=== PATIENT | female | born 1965 | race Caucasian/White ===

== ENCOUNTER 2016-06-02 19:39 | Emergency (ER) | payer BC ==
--- NOTE | 2016-06-02 20:33 | Emergency Department Record ---
History of Present Illness - General Chief complaint: Extremity Problem Stated complaint: RT ARM SWOLLEN Time Seen by Provider: 06/02/16 20:25 Source: Patient Mode of Arrival: Ambulatory - History of Present Illness Initial comments: The patient states that she started having swelling from something on her right forearm. She is unaware of the cause and denies know FB, bites or puncture wounds. yesterday her spot was the size of a silver dollar and now her right arm is swollen to her elbow. She is a smoker, denies history of MRSA, and her last TDAP is not UTD. MD Complaint: Extremity pain, Extremity swelling Onset/Timin -: Hour(s) Location: Right, Forearm Severity scale (1-10): 7 Quality: Aching Improves with: Nothing Worsens with: Nothing Associated Symptoms: Denies other symptoms - Related Data Home Medications Medication Instructions Recorded Confirmed Last Taken Gabapentin [Neurontin] 300 mg PO TID 07/03/15 06/02/16 06/02/16 Allergies Allergy/AdvReac Type Severity Reaction Status Date / Time No Known Drug Allergies Allergy Verified 07/03/15 02:34 Travel Screening - Travel/Exposure Within Last 30 Days Have you traveled within the last 30 days?: No - Travel/Exposure Within Last Year Have you traveled outside the [place] in the last year?: No - Additonal Travel Details Have you been exposed to anyone with a communicable illness?: No - Travel Symptoms Symptom Screening: None Review of Systems Reviewed: No additional complaints except as noted below Constitutional: Reports: As per HPI. Denies: Chills, Fever, Malaise, Night sweats, Weakness, Weight change Eyes: Reports: As per HPI. Denies: Eye discharge, Eye pain, Photophobia, Vision change ENT: Reports: As per HPI. Denies: Congestion, Dental pain, Ear pain, Epistaxis , Hearing loss, Throat pain Respiratory: Reports: As per HPI. Denies: Cough, Dyspnea, Hemoptysis, Stridor, Wheezes Cardiovascular: Reports: As per HPI. Denies: Arrhythmia, Chest pain, Dyspnea on exertion, Edema, Murmurs, Orthopnea, Palpitations, Paroxysmal nocturnal dyspnea, Rheumatic Fever, Syncope Endocrine: Reports: As per HPI. Denies: Fatigue, Heat or cold intolerance, Polydipsia, Polyuria Gastrointestinal: Reports: As per HPI. Denies: Abdominal pain, Constipation, Diarrhea, Hematemesis, Hematochezia, Melena, Nausea, Vomiting Genitourinary: Reports: As per HPI. Denies: Abnormal menses, Discharge, Dyspareunia, Dysuria, Frequency, Hematuria, Incontinence, Retention, Urgency Musculoskeletal: Reports: As per HPI. Denies: Arthralgia, Back pain, Gout, Joint swelling, Myalgia, Neck pain Skin: Reports: As per HPI. Denies: Bruising, Change in color, Change in hair/ nails, Lesions, Pruritus, Rash Neurological: Reports: As per HPI. Denies: Abnormal gait, Confusion, Headache, Numbness, Paresthesias, Seizure, Tingling, Tremors, Vertigo, Weakness Psychiatric: Reports: As per HPI. Denies: Anxiety, Auditory hallucinations, Depression, Homicidal thoughts, Suicidal thoughts, Visual hallucinations Hematological/Lymphatic: Reports: As per HPI. Denies: Anemia, Blood Clots, Easy bleeding, Easy bruising, Swollen glands Past Medical History - SOCIAL HISTORY Smoking Status: Current every day smoker Alcohol Use: Rare Drug Use: None - RESPIRATORY Hx Respiratory Disorders: No - CARDIOVASCULAR Hx Cardio Disorders: No - NEURO Hx Neuro Disorders: No - GI Hx GI Disorders: No - Hx Genitourinary Disorders: Yes Hx UTI: Yes (hx) - ENDOCRINE Hx Endocrine Disorders: No - MUSCULOSKELETAL Hx Musculoskeletal Disorders: No - PSYCH Hx Psych Problems: No - HEMATOLOGY/ONCOLOGY Hx Hematology/Oncology Disorders: No Family Medical History Any Significant Family History?: No Hx Cancer: Grandparents Hx Heart Disease: Father Physical Exam - General General Appearance: Alert, Oriented x3, Cooperative, Mild distress (arm pain right forearm) - Head Head exam: Normal inspection - Eye Eye exam: Normal appearance, PERRL Pupils: Normal accommodation - ENT ENT exam: Normal exam, Mucous membranes moist, Normal external ear exam, Normal orophraynx, TM's normal bilaterally Ear exam: Normal external inspection. negative: External canal tenderness Nasal Exam: Normal inspection. negative: Discharge, Sinus tenderness Mouth exam: Normal external inspection, Tongue normal Teeth exam: Normal inspection. negative: Dental caries Throat exam: Normal inspection. negative: Tonsillar erythema, Tonsillar exudate - Neck Neck exam: Normal inspection, Full ROM. negative: Tenderness - Respiratory Respiratory exam: Normal lung sounds bilaterally. negative: Respiratory distress - Cardiovascular Cardiovascular Exam: Regular rate, Normal rhythm, Normal heart sounds - GI/Abdominal GI/Abdominal exam: Soft, Normal bowel sounds. negative: Tenderness - Rectal Rectal exam: Deferred - exam: Deferred - Extremities Extremities exam: Normal inspection, Full ROM, Normal capillary refill, Tenderness (Right forearm with cellulitis on extensor side, not circumferential , with central bite site with induratio and NO fluctuance. CMS intact distally , no axillary LNopathy, no upper arm swelling. Hand WNL with FROM, no edema.) - Back Back exam: Reports: Normal inspection, Full ROM. Denies: Muscle spasm, Rash noted, Tenderness - Neurological Neurological exam: Alert, Normal gait, Oriented X3, Reflexes normal - Psychiatric Psychiatric exam: Normal affect, Normal mood - Skin Skin exam: Dry, Intact, Normal color, Warm Course Vital Signs 06/02/16 19:53 Temperature 98.6 F Pulse Rate 102 H Respiratory 20 Rate Blood Pressure 115/85 Pulse Ox 94 L Medical Decision Making - Management Options MDM Management: Additional Work-up Planned (e.g. ADM/Transfer/OP Study) (Reheck here 12 hours for repeat antibiotics and recheck of infectioin site.) - Data Complexity MDM Data: Labs Ordered and/or Reviewed - Lab Data Result diagrams: 06/02/16 20:15 06/02/16 20:15 Disposition Disposition: Discharge Clinical Impression: Cellulitis of right forearm Disposition: Home, Self-Care Condition: (1) Good Instructions: Abscess (ED), Cellulitis (ED) Additional Instructions: Recheck here 12 hours for repeat antibiotics and recheck/re-evaluation of infection site without fail. No use of right arm. May use warm soaks if helpful. [place] one every 6 hours if needed for pain.
[2016-06-02] MEDS ORDERED: Diph,Pert(Acell),Tet Vac 0.5 ML SYR IM ONE (20:34)
[2016-06-02 20:41] LABS: HEMOGLOBIN 12.9 gm/dl (11.6-16.0); MEAN CELL VOLUME 93.5 fl (81-97); MEAN CORPUSCULAR HEMOGLOBIN 30.9 pg (27-33); MEAN CORPUSCULAR HGB CONC 33.1 g/dl (32-36); MEAN PLATELET VOLUME 10.2 fl (7.4-10.4); PLATELET COUNT 344 K/uL (130-400); RED BLOOD COUNT 4.17 M/uL (3.80-5.40); WHITE BLOOD COUNT W/O DIFF 17.3 K/uL (4.2-12.2)
[2016-06-02 21:09] LABS: ANION GAP 14.4 (7-16); BLOOD UREA NITROGEN 24 mg/dL (7-17); CARBON DIOXIDE 29.6 mmol/L (22-30); CREATININE 0.9 mg/dL (0.52-1.04); EST GLOMERULAR FILTRATION RATE > 60 ml/min; GLUCOSE,RANDOM 84 mg/dL (70-110)
[2016-06-02] MEDS ORDERED: 0.9 % SODIUM CHLORIDE 1,000 ML BAG IV ONE (21:19)
[2016-06-02] MEDS ORDERED: VANCOMYCIN HCL 1,000 MG in 0.9 % SODIUM CHLORIDE 250ML 250 ML IVPB ONE (21:19)
[2016-06-02] MEDS ORDERED: HYDROCODONE/APAP 5/325MG TABLET PO ONE ×2 (21:23→21:54)
[2016-06-02] MEDS ORDERED: DIPHENHYDRAMINE HCL IV 50 MG/ML VIAL IM ONE (22:45)
== END 2016-06-02 23:10 | disposition home or self-care (01) ==
LOC: ER 19:39
DX: L03.113 Cellulitis of right upper limb (principal)
CPT/HCPCS: 99284 ×2; 96372; 96365; 96375; 80048; 85027; J3370; 90715; J1200; J7050

== ENCOUNTER 2016-06-03 12:48 | Emergency (ER) | payer BC | END 2016-06-03 13:31 | disposition left against medical advice (07) | LOC: ER 12:48 | DX: Z53.20 Procedure and treatment not carried out because of patient's decision for unspecified reasons (principal) ==

== ENCOUNTER 2016-06-03 16:18 | Inpatient (IN) | payer BC ==
[2016-06-03] MEDS ORDERED: VANCOMYCIN HCL 1,000 MG in 0.9 % SODIUM CHLORIDE 250ML 250 ML IVPB ONE (16:27)
[2016-06-03] MEDS ORDERED: CLINDAMYCIN 150 MG CAP PO ONE (16:28)
--- NOTE | 2016-06-03 16:33 | Emergency Department Record ---
History of Present Illness - General Chief Complaint: Recheck - Other Stated Complaint: RECHECK, ANTIBIOTICS Time Seen by Provider: 06/03/16 16:27 Source: Patient Mode of arrival: Ambulatory Limitations: No limitations - History of Present Illness Initial Comments: 50 yo female presents for a repeat dose of IV antibiotics for a forearm cellulitis and possible abscess. Her initial dose was finished at 19:18 last night. The area remains red and has some local swelling. The area of redness has expanded well beyond the initial area. No fevers. . The area started with a small scabbed that she picked. The area in the middle of the redness is firm and tender. No drainage at this point. the patient reports she had been on an oral antibiotic for 2 days at the very start of the redness but she does not have that with her or recall what antibiotic it was. Complaint: Wound re-check -: Days(s) (2) Initial Visit For: Abscess, Cellulitis Returns Today for: Needs IV antibiotics Symptoms Since Prior Visit: Worsening redness Associated Symptoms: None - Related Data Home Medications Medication Instructions Recorded Confirmed Last Taken Gabapentin [Neurontin] 300 mg PO TID 07/03/15 06/03/16 06/02/16 Allergies Allergy/AdvReac Type Severity Reaction Status Date / Time No Known Drug Allergies Allergy Verified 07/03/15 02:34 Review of Systems Constitutional: Denies: Chills, Fever, Malaise, Weakness Eyes: Denies: Eye discharge ENT: Denies: Congestion, Throat pain Respiratory: Denies: Cough Cardiovascular: Denies: Chest pain, Palpitations, Syncope Endocrine: Denies: Fatigue Gastrointestinal: Denies: Abdominal pain, Diarrhea, Nausea, Vomiting Genitourinary: Denies: Dysuria Musculoskeletal: Reports: Myalgia. Denies: Arthralgia, Back pain, Joint swelling Skin: Reports: Change in color, Rash Neurological: Denies: Headache Psychiatric: Denies: Anxiety Hematological/Lymphatic: Denies: Easy bleeding, Easy bruising, Swollen glands Past Medical History - SOCIAL HISTORY Smoking Status: Current every day smoker Drug Use: None - RESPIRATORY Hx Respiratory Disorders: No - CARDIOVASCULAR Hx Cardio Disorders: No - NEURO Hx Neuro Disorders: No - GI Hx GI Disorders: No - Hx Genitourinary Disorders: Yes Hx UTI: Yes (hx) - ENDOCRINE Hx Endocrine Disorders: No - MUSCULOSKELETAL Hx Musculoskeletal Disorders: No - PSYCH Hx Psych Problems: No - HEMATOLOGY/ONCOLOGY Hx Hematology/Oncology Disorders: No Family Medical History Hx Cancer: Grandparents Hx Heart Disease: Father Physical Exam - General General Appearance: Alert, Oriented x3, Cooperative, No acute distress Limitations: No limitations - Head Head exam: Normal inspection - Eye Eye exam: Normal appearance, PERRL - ENT ENT exam: Normal exam Ear exam: Normal external inspection Nasal Exam: Normal inspection Mouth exam: Normal external inspection Teeth exam: Normal inspection Throat exam: Normal inspection - Neck Neck exam: Normal inspection, Full ROM. negative: Tenderness - Respiratory Respiratory exam: Normal lung sounds bilaterally. negative: Respiratory distress - Cardiovascular Cardiovascular Exam: Regular rate, Normal rhythm, Normal heart sounds Peripheral Pulses: 2+: Radial (R) - GI/Abdominal GI/Abdominal exam: Soft - Rectal Rectal exam: Deferred - exam: Deferred - Extremities Extremities exam: Normal capillary refill, Tenderness, Other (right forearm swelling, erythema, small central scab). negative: Normal inspection, Pedal edema - Neurological Neurological exam: Alert, Normal gait, Oriented X3, Reflexes normal - Psychiatric Psychiatric exam: Normal affect, Normal mood - Skin Skin exam: Erythema Course - Reevaluation(s) Reevaluation #1: The area of erythema has extended beyond the original line. I recommend admission for IV antibiotics given the worsening and her compliance issue. 06/03/16 16:34 Reevaluation #2: PROCEDURE: ABSCESS I AND D Mixed density fluid collection found with bedside US Betadine prep Lidocaine 1.% with epi 3ml 11 blade scalpe made a 1.5cm incision Pus immediately found with culture obtained The area was probed for loculations The abscess cavity was irrigated until clear A 1.4 inch packing was placed The patient tolerated well I recommend admission for IV antibiotics and reassess for improvement after the abscess drainage. I left a message with Dr Alvarez regarding admission 06/03/16 17:35 06/04/16 07:37 - Consultations Consultation #1: I SW Dr Alvarez regarding the increased swelling, redness, and abscess with redness near the joint that is significantly worse that the initial visit and is a failed outpatient treatment of her initial oral antibiotics and then IV dose in the ED. Medical Decision Making - Lab Data Result diagrams: 06/03/16 16:44 Disposition Disposition: Admit Clinical Impression: Cellulitis of forearm, right, Abscess of forearm, right Disposition: Still a Patient at [facility] Decision to Admit: Admit from ER Decision to Admit Date: 06/03/16 Decision to Admit Time: 18:09 Condition: (1) Good Time of Disposition: 18:09
[2016-06-03 16:50] LABS: BASO % 0.2 % (0-6); EOS % 0.7 % (0-6); GRAN % 72.2 % (47-80); HEMATOCRIT 37.5 % (35.0-47.0); HEMOGLOBIN 12.3 gm/dl (11.6-16.0); MEAN CELL VOLUME 94.2 fl (81-97); MEAN CORPUSCULAR HEMOGLOBIN 30.9 pg (27-33); MEAN CORPUSCULAR HGB CONC 32.8 g/dl (32-36); MEAN PLATELET VOLUME 10.2 fl (7.4-10.4); MONO % 5.9 % (0-9); PLATELET COUNT 318 K/uL (130-400); RED BLOOD COUNT 3.98 M/uL (3.80-5.40); RED CELL DISTRIBUTION WIDTH 15.8 % (11.5-14.5); WHITE BLOOD COUNT W/O DIFF 17.8 K/uL (4.2-12.2)
[2016-06-03] MEDS ORDERED: HYDROCODONE/APAP 5/325MG TABLET PO PRN (18:11)
[2016-06-03] MEDS ORDERED: 0.9 % SODIUM CHLORIDE 1000ML 1,000 ML IV PRN (18:43)
[2016-06-03] MEDS ORDERED: ACETAMINOPHEN 500 MG TABLET PO PRN (18:43)
[2016-06-03] MEDS ORDERED: FLU VAC QS 2016-17 (INPT, 3YR+) 60MCG/0.5ML IM ONE (18:57)
[2016-06-03] MEDS: CEPHALEXIN 500 MG CAPSULE PO SCH (20:46)
[2016-06-03] MEDS: CLINDAMYCIN 600MG/50ML PREMIX 600 MG in DEXTROSE 1 BAG IV SCH (20:47)
[2016-06-03] MEDS: HYDROCODONE/APAP 5/325MG TABLET PO PRN (20:53)
[2016-06-03] MEDS: GABAPENTIN 300 MG CAPSULE PO SCH (21:53)
[2016-06-04] MEDS: HYDROCODONE/APAP 5/325MG TABLET PO PRN ×4 (02:09→23:32)
[2016-06-04] MEDS: CEPHALEXIN 500 MG CAPSULE PO SCH ×5 (02:10→23:34)
[2016-06-04] MEDS: CLINDAMYCIN 600MG/50ML PREMIX 600 MG in DEXTROSE 1 BAG IV SCH ×3 (05:22→21:36)
[2016-06-04] MEDS: 0.9 % SODIUM CHLORIDE 10ML SYR IVP SCH ×2 (08:00→21:37)
[2016-06-04] MEDS: ENOXAPARIN 40 MG/0.4 ML SYR SC SCH (09:54)
[2016-06-04] MEDS: GABAPENTIN 300 MG CAPSULE PO SCH ×3 (09:54→21:33)
[2016-06-04] MEDS: NICOTINE 21 MG/24 HOUR PATCH TD SCH (11:30)
[2016-06-05] MEDS: CLINDAMYCIN 600MG/50ML PREMIX 600 MG in DEXTROSE 1 BAG IV SCH ×2 (05:42→14:11)
[2016-06-05] MEDS: CEPHALEXIN 500 MG CAPSULE PO SCH ×2 (05:43→12:00)
[2016-06-05] MEDS: HYDROCODONE/APAP 5/325MG TABLET PO PRN ×2 (05:45→10:41)
--- NOTE | 2016-06-05 07:22 | History & Physical ---
History of Present Illness - Date of Service Date of Service for History & Physical: 06/05/16 - History of Present Illness Admitting Diagnosis: failed outpatient cellulitis of the right forearm with abscess, cellulitis over a joint History of Present Illness: Madalyn Neville is a 50 y/o female with no significant medical history and no known history of MRSA admitted for failed out patient treatment of right forearm cellulitis. Patient reports area to right arm began as a scab she picked, had been on oral antibiotics for 2 days with worsening or redness. Denies fever, chills PMH: UTI PSH: bilateral knee, tubal ligation PCP: Dr Alvarez Travel Screening - Travel/Exposure Within Last 30 Days Have you traveled within the last 30 days?: No - Travel/Exposure Within Last Year Have you traveled outside the [place] in the last year?: No - Additonal Travel Details Have you been exposed to anyone with a communicable illness?: No - Travel Symptoms Symptom Screening: None Review of Systems Constitutional: Denies: Chills, Fever, Malaise, Weakness Eyes: Denies: Eye discharge ENT: Denies: Congestion, Throat pain Respiratory: Denies: Cough Cardiovascular: Denies: Chest pain, Palpitations, Syncope Endocrine: Denies: Fatigue Gastrointestinal: Denies: Abdominal pain, Diarrhea, Nausea, Vomiting Genitourinary: Denies: Dysuria Musculoskeletal: Reports: Myalgia. Denies: Arthralgia, Back pain, Joint swelling Skin: Reports: Change in color, Rash Neurological: Denies: Headache Psychiatric: Denies: Anxiety Hematological/Lymphatic: Denies: Easy bleeding, Easy bruising, Swollen glands Past Medical History - SOCIAL HISTORY Smoking Status: Current every day smoker Drug Use: None - RESPIRATORY Hx Respiratory Disorders: No - CARDIOVASCULAR Hx Cardio Disorders: No - NEURO Hx Neuro Disorders: No - GI Hx GI Disorders: No - Hx Genitourinary Disorders: Yes Hx UTI: Yes (hx) - ENDOCRINE Hx Endocrine Disorders: No - MUSCULOSKELETAL Hx Musculoskeletal Disorders: No - PSYCH Hx Psych Problems: No - HEMATOLOGY/ONCOLOGY Hx Hematology/Oncology Disorders: No Family Medical History Hx Cancer: Grandparents Hx Heart Disease: Father H&P Meds/Allergies - Allergies Allergies: Allergies Allergy/AdvReac Type Severity Reaction Status Date / Time No Known Drug Allergies Allergy Verified 07/03/15 02:34 - Home Medications Home Medications Medication Instructions Recorded Confirmed Last Taken Gabapentin [Neurontin] 300 mg PO TID 07/03/15 06/03/16 06/02/16 - Active Medications Active Medications: Current Medications Acetaminophen (Tylenol 500mg Tab) 1,000 mg PO Q6H PRN PRN Reason: PAIN/TEMP Acetaminophen/Hydrocodone Bitart ([place] 5mg/325mg) 1 each PO Q4H PRN PRN Reason: Pain - General Last Admin: 06/05/16 05:45 Dose: 1 each Cephalexin HCl (Keflex) 500 mg PO Q6H [facility] Stop: 06/14/16 12:01 Last Admin: 06/05/16 05:43 Dose: 500 mg Enoxaparin Sodium (Lovenox) 40 mg SC DAILY [facility] Last Admin: 06/04/16 09:54 Dose: 40 mg Gabapentin (Neurontin) 300 mg PO TID [facility] Last Admin: 06/04/16 21:33 Dose: 300 mg Clindamycin Phosphate 600 mg/ (Glucose) 50 mls @ 50 mls/30 min IV Q8H [facility] Last Admin: 06/05/16 05:42 Dose: 50 mls/30 min Nicotine (Nicotine 21mg) 1 patch TD DAILY [facility] Last Admin: 06/04/16 11:30 Dose: 1 patch Sodium Chloride () 10 ml IVP Q12H [facility] Last Admin: 06/04/16 21:37 Dose: 10 ml Physical Exam - Vital Signs Vital Signs: Vital Signs - Last 24 Hrs Temp Pulse Resp BP Pulse Ox 06/05/16 03:08 98.5 F 84 18 120/73 93 L 06/04/16 18:00 97.6 F 85 18 122/69 97 06/04/16 08:17 75 18 92/62 98 - General General Appearance: Alert, Oriented x3, Cooperative, No acute distress Limitations: No limitations - Head Head exam: Normal inspection - Eye Eye exam: Normal appearance, PERRL - ENT ENT exam: Normal exam Ear exam: Normal external inspection Nasal Exam: Normal inspection Mouth exam: Normal external inspection Teeth exam: Normal inspection Throat exam: Normal inspection - Neck Neck exam: Normal inspection, Full ROM. negative: Tenderness - Respiratory Respiratory exam: Normal lung sounds bilaterally. negative: Respiratory distress - Cardiovascular Cardiovascular Exam: Regular rate, Normal rhythm, Normal heart sounds Peripheral Pulses: 2+: Radial (R) - GI/Abdominal GI/Abdominal exam: Soft - Rectal Rectal exam: Deferred - exam: Deferred - Extremities Extremities exam: Normal capillary refill, Tenderness, Other (right forearm swelling, erythema, small central scab). negative: Normal inspection, Pedal edema - Neurological Neurological exam: Alert, Normal gait, Oriented X3, Reflexes normal - Psychiatric Psychiatric exam: Normal affect, Normal mood - Skin Skin exam: Erythema Results - Labs Result Diagrams: 06/03/16 16:44 VTE H&P Assessment - Risk for VTE Risk for VTE: Yes Risk Level: Moderate Risk Assessment Date: 06/05/16 Risk Assessment Time: 07:28 VTE Orders Placed or Will Be Placed: Yes Plan - Inpatient Certification Inpatient Certification: Admit to inpatient care: Based on my medical assessment, after consideration of patient's risk factors (age, co-morbidities and patient presenting symptoms and acuity), I expect that this patient will remain in the hospital greater than or equal to two midnights and that the services needed warrant inpatient care because: Patient Risk Factors: [failed outpatient treatment of cellulitis] Estimated length of stay: [48-72 hours] The patient may reasonably be expected to be discharged or transferred to a hospital within 96 hours after admission to [facility]. Services needed: [IV antibiotics] Post hospital care (if known): [] I certify that my determination is in accordance with my understanding of Medicare requirements for reasonable and necessary inpatient services. 06/05/16 07:28 - Detailed Diagnosis and Plan (1) Cellulitis of forearm, right Current Visit: Yes Status: Acute Base Code: L03.113 - CELLULITIS OF RIGHT UPPER LIMB Comment: 06/05- admitted for failed outpatient treatment of cellulitis - no known history of MRSA - no Hx DM - WBC in ER 17.8, will recheck today - afebrile - Continue Clindamycin 600mg IVPB Q 8 hours and Keflex 500mg PO Q 6 hours - Per ER report had I&D of abscess within area of cellulitis- await culture results - pain controlled with [place] 5/325mg Q 4 hrs PRN (2) DVT prophylaxis Current Visit: Yes Status: Acute Base Code: [id number] - Comment: 06/05- Lovenox 40mg SQ QD during this hospitalization (3) Full code status Current Visit: Yes Status: Acute Base Code: Z78.9 - OTHER SPECIFIED HEALTH STATUS Comment: 06/05- will remain full code during this hospitalization
[2016-06-05 08:26] LABS: BASO % 0.2 % (0-6); EOS % 2.6 % (0-6); GRAN % 59.1 % (47-80); HEMOGLOBIN 11.7 gm/dl (11.6-16.0); LYMPH % 31.2 % (16-45); MEAN CORPUSCULAR HGB CONC 32.5 g/dl (32-36); MEAN PLATELET VOLUME 10.4 fl (7.4-10.4); MONO % 6.9 % (0-9); PLATELET COUNT 296 K/uL (130-400); RED BLOOD COUNT 3.79 M/uL (3.80-5.40); RED CELL DISTRIBUTION WIDTH 15.9 % (11.5-14.5)
--- NOTE | 2016-06-05 08:26 | History and Physical Report ---
After seeing Dr. Dallas she was requested to come back in twelve hours for repeat antibiotics and re-evaluation. She was given Vancomycin IV piggyback 1 gram and labs were drawn. She was seen by Dr. Loza the next day. There is concern about the Vancomycin because it caused a rash, probably more an adverse reaction rather than a true allergy, but the option was not to go with Vancomycin again. On the recheck by Dr. Loza he felt that it was getting worse and he opened it up and he was concerned about the cellulitis going into the joint in the elbow. He started IV Clindamycin , he did an I&D, he got purulent material out, he packed it with packing quarter inch. 1.4 inches of packing was placed into the abscess cavity after irrigating it. Keflex orally and Clindamycin IV. Today at my evaluation the right forearm is still swollen, it looks like the cellulitis is retracting slightly and not as red and showing some improvement. The packing is nicely in place, we will change the packing tomorrow. PAST MEDICAL HISTORY: Tobacco use and restless leg syndrome which she uses Gabapentin. She also has had frequent urinary tract infections in the past. She smokes one pack of cigarettes per day. PAST SURGICAL HISTORY: Bilateral knee surgery and tubal ligation. MEDICATIONS ON ADMISSION: Gabapentin 300 mg t.i.d. ALLERGIES: No known drug allergies. FAMILY/PSYCHOSOCIAL HISTORY: Unremarkable. REVIEW OF SYSTEMS: HEENT: No upper respiratory infectious symptoms, cough, cold or congestion. Cardiovascular: No chest pain, palpitations, or arrhythmias. Respiratory: She smokes one pack a day and has so for about 30 years, she is trying to stop. Gastrointestinal: No nausea, vomiting, diarrhea, black stools, or bloody stools. Genitourinary: No dysuria, hematuria , frequency or burning on urination. Musculoskeletal: No joint or bone abnormalities. Neurologic: No CVA, paralysis, or paresthesias. Gynecologic: Unremarkable. Endocrine: No diabetes or thyroid disease. Integument: See chief complaint. There is an abscess of cellulitis of the right forearm. PHYSICAL EXAMINATION: Height is 5'2", weight is 107 pounds. Vital signs: Temperature is 98.8, pulse is 75, blood pressure is 92/62, respirations are 18, pulse ox is 98% on room air. HEENT: Pupils are equal, round and reactive to light and accommodation. Extraocular muscles are intact. Throat is clear. Nose is clear. Tympanic membranes are cordero. NECK: Supple. No jugular venous distention. No hepatojugular reflex. No carotid bruits. Thyroid is smooth. CARDIOVASCULAR: Regular rate and rhythm without murmurs, clicks, rubs or gallops. RESPIRATORY: Decreased breath sounds bilaterally. She has a hoarse voice which probably is from cigarettes. ABDOMEN: Soft, nontender. No hepatosplenomegaly. No masses. No tenderness. Bowel sounds are active. No bruits. EXTREMITIES: No pitting edema. No cyanosis. No clubbing. Full range of motion. Peripheral pulses are good. BREASTS: Deferred. GYNECOLOGICAL: Deferred. RECTAL: Deferred. NEUROLOGICAL: Cranial nerves II through XII intact. No gross defects. Sensation normal. Strength normal. Deep tendon reflexes are equal bilaterally. Babinski's negative. MENTAL STATUS: Alert and oriented times three. INTEGUMENT: In the right forearm there is an abscess area in which packing is in place, it looks nice and dry. There are two purple lines around the one circled 06/02/16, the other was 06/03/16. The redness is less angry and retracting according to the patient. There is still fairly redness going over the surface of the elbow, the abscess is about 4 inches distal to the elbow. IMPRESSION: ABSCESS CELLULITIS OF THE RIGHT FOREARM, FAILED OUTPATIENT THERAPY. PLAN: IV Clindamycin, oral Keflex, we will consider adding Bactrim if it doesn' t continue to improve. Aleksandr Sanz D.O. Date & Time JOB NUMBER: [id number] [facility]
[2016-06-05 08:27] LABS: MEAN CORPUSCULAR HEMOGLOBIN 30.8 pg (27-33)
[2016-06-05] MEDS: 0.9 % SODIUM CHLORIDE 10ML SYR IVP SCH (10:42)
[2016-06-05] MEDS: ENOXAPARIN 40 MG/0.4 ML SYR SC SCH (10:42)
[2016-06-05] MEDS: GABAPENTIN 300 MG CAPSULE PO SCH (10:42)
[2016-06-05] MEDS: NICOTINE 21 MG/24 HOUR PATCH TD SCH (10:43)
--- NOTE | 2016-06-05 12:38 | Discharge Note ---
Discharge Note - Date Date of Discharge Note: 06/05/16 Disposition: Home, Self-Care Condition: (1) Good Additional Instructions: follow up with Dr Yeh in 2 to 4 days wash arm daily and warm compresses four times a day and use gauze dressings take bactrim DS twice a day keflex 500 mg four times a day Prescriptions: Sulfamethoxazole/Trimethoprim [Bactrim Ds Tablet] 1 each PO BID #20 tablet Cephalexin [Keflex] 500 mg PO Q6H #40 capsule Nicotine [Nicotine 21Mg] 1 patch TD DAILY #30 patch Hydrocodone/Acetaminophen [[place] 5mg/325mg] 1 tab PO Q6H PRN #14 tab PRN Reason: Pain - General Forms: Patient Portal Access Activity at Discharge: Increase Activity as Tolerated Diet at Discharge: Regular Diet
== END 2016-06-05 15:36 | disposition home or self-care (01) | DRG 603 ==
LOC: ER 16:18 → MEDSURG 18:41
PROVIDERS: ADMIT Family Medicine; ATTEND Emergency Medicine
PROC: 0H9DXZZ Drainage of Right Lower Arm Skin, External Approach (ICD-10-PCS; principal; 2016-06-03)
DX: L03.113 Cellulitis of right upper limb (principal); F17.200 Nicotine dependence, unspecified, uncomplicated
CPT/HCPCS: 10060; 85025; 85027; 90686; 96365; 99285; J1650; J7050

== ENCOUNTER 2016-11-13 00:12 | Emergency (ER) | payer BC ==
--- NOTE | 2016-11-13 00:35 | Emergency Department Record ---
History of Present Illness - General Chief complaint: Extremity Problem Stated complaint: FOOT PAIN Time Seen by Provider: 11/13/16 00:29 Source: Patient Mode of Arrival: Ambulatory - History of Present Illness Initial comments: Injured her left foot in a swimming pool over 3 days ago. Three days ago it began to swell on the top and is tender. She is on her feet all days cleaning houses. Onset/Timin -: Week(s) Location: Left, Foot Radiation: None Severity scale (1-10): 6 Quality: Aching Consistency: Intermittent Improves with: Cold therapy, Medication Worsens with: Exertion, Palpation Associated Symptoms: Denies other symptoms - Related Data Home Medications Medication Instructions Recorded Confirmed Last Taken Gabapentin [Neurontin] 800 mg PO TID 07/03/15 11/13/16 11/13/16 Allergies Allergy/AdvReac Type Severity Reaction Status Date / Time No Known Drug Allergies Allergy Verified 07/03/15 02:34 Travel Screening - Travel/Exposure Within Last 30 Days Have you traveled within the last 30 days?: No Review of Systems Reviewed: No additional complaints except as noted below Constitutional: Reports: As per HPI. Denies: Chills, Fever, Malaise, Night sweats, Weakness, Weight change Eyes: Reports: As per HPI. Denies: Eye discharge, Eye pain, Photophobia, Vision change ENT: Reports: As per HPI. Denies: Congestion, Dental pain, Ear pain, Epistaxis , Hearing loss, Throat pain Respiratory: Reports: As per HPI. Denies: Cough, Dyspnea, Hemoptysis, Stridor, Wheezes Cardiovascular: Reports: As per HPI. Denies: Arrhythmia, Chest pain, Dyspnea on exertion, Edema, Murmurs, Orthopnea, Palpitations, Paroxysmal nocturnal dyspnea, Rheumatic Fever, Syncope Endocrine: Reports: As per HPI. Denies: Fatigue, Heat or cold intolerance, Polydipsia, Polyuria Gastrointestinal: Reports: As per HPI. Denies: Abdominal pain, Constipation, Diarrhea, Hematemesis, Hematochezia, Melena, Nausea, Vomiting Genitourinary: Reports: As per HPI. Denies: Abnormal menses, Discharge, Dyspareunia, Dysuria, Frequency, Hematuria, Incontinence, Retention, Urgency Musculoskeletal: Reports: As per HPI. Denies: Arthralgia, Back pain, Gout, Joint swelling, Myalgia, Neck pain Skin: Reports: As per HPI. Denies: Bruising, Change in color, Change in hair/ nails, Lesions, Pruritus, Rash Neurological: Reports: As per HPI. Denies: Abnormal gait, Confusion, Headache, Numbness, Paresthesias, Seizure, Tingling, Tremors, Vertigo, Weakness Psychiatric: Reports: As per HPI. Denies: Anxiety, Auditory hallucinations, Depression, Homicidal thoughts, Suicidal thoughts, Visual hallucinations Hematological/Lymphatic: Reports: As per HPI. Denies: Anemia, Blood Clots, Easy bleeding, Easy bruising, Swollen glands Past Medical History - SOCIAL HISTORY Smoking Status: Current every day smoker Alcohol Use: None Drug Use: None - RESPIRATORY Hx Respiratory Disorders: No - CARDIOVASCULAR Hx Cardio Disorders: No - NEURO Hx Neuro Disorders: Yes Hx Neuropathy: Yes - GI Hx GI Disorders: No - Hx Genitourinary Disorders: Yes Hx UTI: Yes (hx) - ENDOCRINE Hx Endocrine Disorders: No - MUSCULOSKELETAL Hx Musculoskeletal Disorders: No - PSYCH Hx Psych Problems: No - HEMATOLOGY/ONCOLOGY Hx Hematology/Oncology Disorders: No Family Medical History Any Significant Family History?: Yes Hx Cancer: Grandparents Hx Heart Disease: Father Physical Exam - General General Appearance: Alert, Oriented x3, Cooperative, No acute distress - Head Head exam: Normal inspection - Eye Eye exam: Normal appearance, PERRL Pupils: Normal accommodation - ENT ENT exam: Normal exam, Normal external ear exam, Normal orophraynx Ear exam: Normal external inspection. negative: External canal tenderness Nasal Exam: Normal inspection. negative: Discharge, Sinus tenderness Mouth exam: Normal external inspection, Tongue normal Teeth exam: Normal inspection. negative: Dental caries Throat exam: Normal inspection. negative: Tonsillar erythema, Tonsillar exudate - Neck Neck exam: Normal inspection, Full ROM. negative: Tenderness - Respiratory Respiratory exam: Normal lung sounds bilaterally. negative: Respiratory distress - Cardiovascular Cardiovascular Exam: Regular rate, Normal rhythm - GI/Abdominal GI/Abdominal exam: Soft. negative: Tenderness - Rectal Rectal exam: Deferred - exam: Deferred - Extremities Extremities exam: Normal inspection, Full ROM, Normal capillary refill. negative: Tenderness Image of Feet: 1 - swelling tenderness, no erythema or warmth. Toes nontender. - Back Back exam: Reports: Normal inspection, Full ROM. Denies: Muscle spasm, Rash noted, Tenderness - Neurological Neurological exam: Alert, Normal gait, Oriented X3, Reflexes normal - Psychiatric Psychiatric exam: Normal affect, Normal mood - Skin Skin exam: Dry, Intact, Normal color, Warm Course Vital Signs 11/13/16 00:25 Pulse Rate [ 94 H Pulse Ox Probe] Respiratory 20 Rate Blood Pressure 158/92 [Left Arm] Pulse Ox 96 - Reevaluation(s) Reevaluation #1: Patient is aware that the xray interpretation is preliminary only. 11/13/16 01:03 Medical Decision Making - Management Options MDM Management: No Additional Work-up Planned - Data Complexity MDM Data: X-Ray Ordered and/or Reviewed (Foot xray: Negative for fracture. Soft tissue swelling dorsal mid foot noted. Per ED physician.) Disposition Disposition: Discharge Clinical Impression: Injury of foot, left Qualifiers: Encounter type: initial encounter Qualified Code(s): S99.922A - Unspecified injury of left foot, initial encounter Disposition: Home, Self-Care Condition: (1) Good Instructions: Foot Sprain (ED) Additional Instructions: Shahbaz wrap. Post op shoe. Elevate foot continuously and Only minimal required ambulation for 1 week. Tylenol or ibuprofen as directed as needed for pain. Follow up with PCP if not improving next week. Give PCP referral list. Quality - Quality Measures Quality Measures: N/A - Blood Pressure Screening Does Patient Have Any of the Following: No Blood Pressure Classification: Hypertensive Reading Systolic Measurement: 158 Diastolic Measurement: 92 Screening for High Blood Pressure: < Pre-Hypertensive BP, F/U Documented > [ [id number]] Pre-Hypertensive Follow-up Interventions: Follow-up with rescreen every year.
[2016-11-13] MEDS: ACETAMINOPHEN 325 MG TAB PO ONE (00:53)
--- NOTE | 2016-11-14 14:26 | RADIOLOGY REPORT ---
EXAM: LEFT FOOT HISTORY: PATIENT TRIPPED WITH PAIN BETWEEN THE FIRST AND THIRD PROXIMAL DIGITS. TECHNIQUE: Three views of the left foot were obtained. Comparison: None. Encounter: Initial. FINDINGS: Mild degenerative arthritis at the first MTP joint. There is also moderate degenerative arthritis at the DIP joints of some of the toes, particularly the second and fourth. There is some soft tissue swelling at the level of the metatarsals particularly as seen dorsally on the lateral view, however, no definite fracture or dislocation of the left foot identified. IMPRESSION: 1. SOME SOFT TISSUE SWELLING INVOLVING THE LEFT FOOT. 2. MILD DEGENERATIVE ARTHRITIS DETAILED ABOVE. 3. NO DEFINITE FRACTURE OF THE LEFT FOOT IDENTIFIED. JOB NUMBER: [id number] MTDD
== END 2016-11-13 01:18 | disposition home or self-care (01) ==
LOC: ER 00:12
DX: S99.922A Unspecified injury of left foot, initial encounter (principal); W18.49XA Other slipping, tripping and stumbling without falling, initial encounter; Y93.11 Activity, swimming
CPT/HCPCS: 99283